=== PATIENT | female | born 1985 | race Caucasian/White ===

== ENCOUNTER 2016-06-09 11:09 | Emergency (ER) | payer OTHER ==
[~2016-06-09] VITALS: Ht 170.2 cm; Wt 131.8 kg
[~2016-06-09 11:09] MED LIST: ASPIR-LOW81 MG PO; CEFACLOR ER500 MG PO; DIABETA2.5 MG PO; GLYBURIDE2.5 MG PO; IBUPROFEN800 MG PO; KEFLEX250 MG PO; KEFLEX500 MG PO; LABETALOL HCL200 MG PO; LIDOCAINE20 MG/1 M5 PO; MACROBID100 MG PO; METADATE CD30 MG PO; MICRONOR0.35 MG PO; NAPROSYN500 MG PO; NIFEDIPINE ER30 MG PO; NITROFURANTOIN100 M3 PO; ORTHO TRI-CYCL1 EACH PO; PREDNISONE20 MG PO; PRENATAL TABLE1 EAC3 PO; PROCARDIA XL30 MG PO; ROBITUSSIN AC,T10 ML PO; TOPAMAX50 MG PO; TRI-PREVIFEM1 EACH PO; TYLENOL REGULA325 MG PO; ULTRAM50 MG PO; VISINE15 ML OP; ZOLOFT100 MG PO; ZOLOFT50 MG PO
[2016-06-09] MEDS ORDERED: ACID CONTROL150 MG PO (14:15)
[2016-06-09] MEDS ORDERED: METADATE CD30 MG PO (14:15)
[2016-06-09] MEDS ORDERED: SERTRALINE HCL50 MG PO (14:15)
[2016-06-09] MEDS ORDERED: VALIUM5 MG PO (14:25)
[2016-06-09] MEDS ORDERED: MOTRIN800 MG PO (14:25)
[2016-06-09] MEDS ORDERED: NORCO 7.5/321 TABLET PO (14:25)
[2016-06-09 15:02] VITALS: BP 141/85
== END 2016-06-09 15:03 | disposition home or self-care (01) ==
LOC: EME 11:09
DX: S30.0XXA Contusion of lower back and pelvis, initial encounter (principal); S39.012A Strain of muscle, fascia and tendon of lower back, initial encounter; W00.0XXA Fall on same level due to ice and snow, initial encounter; Y99.0 Civilian activity done for income or pay
CPT/HCPCS: 72100; 72220; 99281; 99284

== ENCOUNTER 2016-08-13 07:42 | Emergency (ER) | payer OTHER ==
[~2016-08-13] VITALS: Ht 167.6 cm; Wt 131.3 kg
[~2016-08-13 07:42] MED LIST changes: +ACID CONTROL150 MG PO; +MOTRIN800 MG PO; +NORCO 7.5/321 TABLET PO; +SERTRALINE HCL50 MG PO; +VALIUM5 MG PO
[2016-08-13] MEDS ORDERED: NAPROXEN500 MG PO (08:29)
[2016-08-13 08:48] VITALS: BP 165/99
== END 2016-08-13 08:52 | disposition home or self-care (01) ==
LOC: EME 07:42
PROC: 3E0234Z Introduction of Serum, Toxoid and Vaccine into Muscle, Percutaneous Approach (ICD-10-PCS; principal; 2016-08-13)
DX: S54.02XA Injury of ulnar nerve at forearm level, left arm, initial encounter (principal); S50.312A Abrasion of left elbow, initial encounter; S50.02XA Contusion of left elbow, initial encounter; W00.0XXA Fall on same level due to ice and snow, initial encounter; K21.9 Gastro-esophageal reflux disease without esophagitis; Z91.040 Latex allergy status
CPT/HCPCS: 73080; 99281; 99283; J1885

== ENCOUNTER 2016-12-03 00:31 | Emergency (ER) | payer OTHER ==
[~2016-12-03] VITALS: Ht 167.6 cm; Wt 130.5 kg
[~2016-12-03 00:31] MED LIST changes: +NAPROXEN500 MG PO
[2016-12-03 01:32] LABS: MCH 29.2 PG (29.0-34.0); MCHC 33.9 G/DL (30.0-36.0); MCV 86.3 FL (83-99); MEAN PLAT.VOLUME 11.9 uM^3 (9.5-12.4); PLATELET COUNT 188 K/uL (156-360); RBC DIS.WIDTH-CV 12.6 % (11.8-14.6); RBC DIS.WIDTH-SD 39.4 % (39-53); WHITE BLOOD COUNT 6.2 K/uL (4.1-10.2)
[2016-12-03 02:10] LABS: CHLORIDE 102 mEq/L (99-109); POTASSIUM 4.1 mEq/L (3.7-5.4); SODIUM 138 mEq/L (136-147)
[2016-12-03 02:13] LABS: GLUCOSE 319 mg/dL (70-99)
[2016-12-03 02:14] LABS: ANION GAP 12 MEQ/L (2-14)
[2016-12-03 02:15] LABS: TOTAL BILIRUBIN 0.9 mg/dL (0.0-1.0)
[2016-12-03 02:16] LABS: ALKALINE PHOSPHATASE 85 IU/L (3-129); GFR ESTIMATE (CALCULATED) > 59 mL/min/
[2016-12-03 02:17] LABS: UREA NITROGEN (BUN) 11 mg/dL (9-23)
[2016-12-03 02:25] LABS: QUANTITATIVE HCG < 4.0 MIU/ML
[2016-12-03 03:20] VITALS: BP 141/81
== END 2016-12-03 03:20 | disposition home or self-care (01) ==
LOC: EME 00:31 → EXP 00:31
DX: R07.9 Chest pain, unspecified (principal); R55 Syncope and collapse; R53.1 Weakness; R11.0 Nausea; R73.03 Prediabetes; R73.9 Hyperglycemia, unspecified; E86.0 Dehydration
CPT/HCPCS: 80053; 81003; 84702; 85027; 93005; 99281; 99285

== ENCOUNTER 2016-12-06 13:43 | Emergency (ER) | payer OTHER ==
[~2016-12-06] VITALS: Ht 170.2 cm; Wt 131.0 kg
[2016-12-06 14:43] LABS: HEMATOCRIT 42.5 % (36.0-46.0); MCH 29.2 PG (29.0-34.0); MCHC 34.1 G/DL (30.0-36.0); MCV 85.7 FL (83-99); PLATELET COUNT 159 K/uL (156-360); RBC DIS.WIDTH-CV 12.5 % (11.8-14.6); RBC DIS.WIDTH-SD 38.6 % (39-53); RED BLOOD COUNT 4.96 M/uL (3.80-5.20); WHITE BLOOD COUNT 4.9 K/uL (4.1-10.2)
[2016-12-06 14:43] LABS: CARBON DIOXIDE (BICARBONATE) 26.1 MEQ/L (20-31)
[2016-12-06 14:52] LABS: ADD MIUA? YES; BILIRUBIN NEGATIVE; BLOOD NEGATIVE; COLOR STRAW ((YELLOW)); GLUCOSE (STRIP) >=500; KETONES NEGATIVE; LEUKOCYTES SMALL; NITRITE NEGATIVE; PROTEIN (STRIP) NEGATIVE; SPECIFIC GRAVITY 1.026 (1.000-1.030); UROBILINOGEN 0.2 MG/DL (0.2-1.0)
[2016-12-06 14:53] LABS: CHLORIDE 101 mEq/L (99-109); SODIUM 134 mEq/L (136-147)
[2016-12-06 14:56] LABS: POINT-OF-CARE METER ID UU13113778; POINT-OF-CARE USER ID NUTJNM
[2016-12-06 14:57] LABS: ANION GAP 10 MEQ/L (2-14)
[2016-12-06 14:58] LABS: TOTAL BILIRUBIN 0.8 mg/dL (0.0-1.0)
[2016-12-06 14:59] LABS: ALKALINE PHOSPHATASE 85 IU/L (3-129); GFR ESTIMATE (CALCULATED) > 59 mL/min/
[2016-12-06 15:00] LABS: UREA NITROGEN (BUN) 10 mg/dL (9-23)
[2016-12-06 15:03] LABS: LIPASE 41 U/L (1.0-51.0)
[2016-12-06 15:03] LABS: BACTERIA RARE /HPF; EPITHELIAL CELLS RARE /HPF; MUCUS TRACE /LPF; RED BLOOD CELLS 0-5 /HPF (0-5); UCUL ADDED? NO; WHITE BLOOD CELLS 15-20 /HPF (0-5)
[2016-12-06 15:05] LABS: GLUCOSE 513 mg/dL (70-99)
[2016-12-06 15:08] LABS: QUANTITATIVE HCG < 4.0 MIU/ML
[2016-12-06 16:12] LABS: POINT-OF-CARE METER ID UU13113800
[2016-12-06] MEDS ORDERED: GLIMEPIRIDE2 MG PO (16:15)
[2016-12-06 17:14] VITALS: BP 144/86
== END 2016-12-06 17:16 | disposition home or self-care (01) ==
LOC: EME 13:43
PROVIDERS: Nurse Practitioner Family
DX: E11.65 Type 2 diabetes mellitus with hyperglycemia (principal); R11.2 Nausea with vomiting, unspecified; R10.84 Generalized abdominal pain; R42 Dizziness and giddiness; R35.0 Frequency of micturition; R07.9 Chest pain, unspecified; R06.02 Shortness of breath; Z91.19 Patient's noncompliance with other medical treatment and regimen; Z87.891 Personal history of nicotine dependence
CPT/HCPCS: 80053; 81003; 82803; 82948; 83690; 84702; 85027; 93005; 99281; 99284; J2405; J7030

== ENCOUNTER 2017-05-03 13:32 | Emergency (ER) | payer OTHER ==
[~2017-05-03] VITALS: Ht 167.6 cm; Wt 131.4 kg
[~2017-05-03 13:32] MED LIST changes: +FIORICET 50-301 EAC1 PO; +GLIMEPIRIDE2 MG PO; +ZOFRAN ODT8 MG PO
[2017-05-03 15:26] LABS: HEMATOCRIT 41.2 % (36.0-46.0); MCHC 33.7 G/DL (30.0-36.0); MCV 85.8 FL (83-99); MEAN PLAT.VOLUME 11.1 uM^3 (9.5-12.4); PLATELET COUNT 205 K/uL (156-360); RBC DIS.WIDTH-CV 12.6 % (11.8-14.6); RBC DIS.WIDTH-SD 39.6 % (39-53); WHITE BLOOD COUNT 8.3 K/uL (4.1-10.2)
[2017-05-03 15:35] LABS: CHLORIDE 102 mEq/L (99-109); POTASSIUM 4.3 mEq/L (3.7-5.4); SODIUM 139 mEq/L (136-147)
[2017-05-03 15:36] LABS: GLUCOSE 159 mg/dL (70-99)
[2017-05-03 15:38] LABS: ANION GAP 12 MEQ/L (2-14)
[2017-05-03 15:40] LABS: GFR ESTIMATE (CALCULATED) > 59 mL/min/
[2017-05-03 15:41] LABS: UREA NITROGEN (BUN) 13 mg/dL (9-23)
[2017-05-03 15:48] LABS: QUANTITATIVE HCG < 4.0 MIU/ML
[2017-05-03] MEDS ORDERED: PHENERGAN-CODE120 ML PO (16:47)
[2017-05-03] MEDS ORDERED: TESSALON PERLE100 MG PO (16:47)
[2017-05-03] MEDS ORDERED: VENTOLIN HFA18 GM IH (16:47)
[2017-05-03 18:03] VITALS: BP 137/99
== END 2017-05-03 18:10 | disposition home or self-care (01) ==
LOC: EME 13:32
PROVIDERS: Nurse Practitioner Family
DX: J06.9 Acute upper respiratory infection, unspecified (principal); I10 Essential (primary) hypertension; G47.30 Sleep apnea, unspecified; F90.9 Attention-deficit hyperactivity disorder, unspecified type; E11.9 Type 2 diabetes mellitus without complications; F31.9 Bipolar disorder, unspecified; Z87.891 Personal history of nicotine dependence
CPT/HCPCS: 71020; 80048; 81003; 84702; 85027; 87651 90; 94640; 99281; 99284

== ENCOUNTER 2017-07-01 20:44 | Emergency (ER) | payer OTHER ==
[~2017-07-01] VITALS: Ht 167.6 cm; Wt 127.2 kg
[~2017-07-01 20:44] MED LIST changes: +PHENERGAN-CODE120 ML PO; +TESSALON PERLE100 MG PO; +VENTOLIN HFA18 GM IH
[2017-07-01] MEDS ORDERED: ZOFRAN ODT4 MG PO (22:08)
[2017-07-01] MEDS ORDERED: VENTOLIN HFA18 GM IH (22:08)
[2017-07-01 22:40] VITALS: BP 158/109
[2017-07-02] MEDS ORDERED: MOTRIN800 MG PO (17:30)
== END 2017-07-01 22:41 | disposition home or self-care (01) ==
LOC: EME 20:44
PROVIDERS: Nurse Practitioner Family
DX: J10.1 Influenza due to other identified influenza virus with other respiratory manifestations (principal); R11.2 Nausea with vomiting, unspecified; R19.7 Diarrhea, unspecified; E11.9 Type 2 diabetes mellitus without complications; I10 Essential (primary) hypertension; F43.10 Post-traumatic stress disorder, unspecified; Z87.891 Personal history of nicotine dependence; F90.9 Attention-deficit hyperactivity disorder, unspecified type
CPT/HCPCS: 71046; 87502; 87651 90; 94640; 99281; 99284

== ENCOUNTER 2017-07-02 16:29 | Emergency (ER) | payer OTHER ==
[~2017-07-02] VITALS: Ht 167.6 cm; Wt 125.6 kg
[~2017-07-02 16:29] MED LIST changes: +ZOFRAN ODT4 MG PO
[2017-07-02] MEDS ORDERED: MOTRIN800 MG PO (17:30)
[2017-07-02 17:43] VITALS: BP 141/97
== END 2017-07-02 17:44 | disposition home or self-care (01) ==
LOC: EME 16:29
DX: J11.83 Influenza due to unidentified influenza virus with otitis media (principal); Z91.040 Latex allergy status
CPT/HCPCS: 99281; 99283; J1885

== ENCOUNTER 2017-09-07 09:34 | Inpatient (IN) | payer OTHER ==
[~2017-09-07] VITALS: Ht 167.6 cm; Wt 122.2 kg
[2017-09-07 10:06] LABS: HEMATOCRIT 43.8 % (36.0-46.0); MCH 29.6 PG (29.0-34.0); MCHC 34.2 G/DL (30.0-36.0); MCV 86.6 FL (83-99); PLATELET COUNT 218 K/uL (156-360); RBC DIS.WIDTH-CV 12.8 % (11.8-14.6); RBC DIS.WIDTH-SD 40.1 % (39-53); RED BLOOD COUNT 5.06 M/uL (3.80-5.20); WHITE BLOOD COUNT 6.4 K/uL (4.1-10.2)
[2017-09-07 10:19] LABS: CHLORIDE 103 mEq/L (99-109); POTASSIUM 4.5 mEq/L (3.7-5.4); SODIUM 137 mEq/L (136-147)
[2017-09-07 10:20] LABS: GLUCOSE 253 mg/dL (70-99)
[2017-09-07 10:23] LABS: SERUM ETHYL ALCOHOL < 10 mg/dL
[2017-09-07 10:24] LABS: CREATININE 0.9 mg/dL (0.6-1.3); GFR ESTIMATE (CALCULATED) > 59 mL/min/
[2017-09-07 10:25] LABS: UREA NITROGEN (BUN) 12 mg/dL (9-23)
[2017-09-07 11:24] LABS: AMPHETAMINE NEGATIVE (500 ng/mL); BARBITURATES NEGATIVE (200 ng/mL); BENZODIAZEPINES NEGATIVE (150 ng/mL); BUPRENORPHINE NEGATIVE (10 ng/mL); COCAINE NEGATIVE (150 ng/mL); METHADONE NEGATIVE (200 ng/mL); METHAMPHETAMINE NEGATIVE (500 ng/mL); OPIATES (MORPHINE) NEGATIVE (100 ng/mL); OXYCODONE NEGATIVE (100 ng/mL); PHENCYCLIDINE NEGATIVE (25 ng/mL); PROPOXYPHENE NEGATIVE (300 ng/mL); THC CANNABINOIDS NEGATIVE (50 ng/mL); TRICYCLIC ANTIDEPRESSANTS NEGATIVE (300 ng/mL)
[2017-09-07] MEDS ORDERED: BIOTIN 5000MCG PO (13:43)
[2017-09-07] MEDS ORDERED: BASAGLAR K100 UNIT/1 SC (13:44)
[2017-09-07 13:56] VITALS: BP 131/64
[2017-09-07 14:01] VITALS: BP 131/64
[2017-09-08 07:55] VITALS: BP 123/66
[2017-09-08 13:28] LABS: QUANTITATIVE HCG < 4.0 MIU/ML
[2017-09-08 15:45] VITALS: BP 122/68
[2017-09-09 08:04] VITALS: BP 105/65
[2017-09-09 14:24] LABS: HEMOGLOBIN A1c (GLYCOHEMOGLOB) 8.6 % (Below 5.7)
[2017-09-09 15:43] VITALS: BP 110/61
[2017-09-10 09:36] VITALS: BP 128/72
[2017-09-10 15:30] VITALS: BP 118/60
[2017-09-11 07:52] VITALS: BP 117/60
[2017-09-11 15:23] VITALS: BP 132/80
[2017-09-12 07:41] VITALS: BP 130/60
[2017-09-12] MEDS ORDERED: LEVEMIR100 UNIT/2 SC ×2 (09:45)
[2017-09-12] MEDS ORDERED: LITHIUM CARBON300 MG PO (09:45)
[2017-09-12] MEDS ORDERED: DESYREL100 MG PO (09:45)
[2017-09-12] MEDS ORDERED: ESCITALOPRAM OX10 MG PO (09:45)
== END 2017-09-12 11:47 | disposition home or self-care (01) | DRG 885 ==
LOC: EME 09:34 → EDOF 12:37 → 1WEST 12:37 → ENRESERV 14:34 → 1WEST 14:34
PROVIDERS: Psychiatry & Neurology Psychiatry
DX: F31.9 Bipolar disorder, unspecified (principal); R45.851 Suicidal ideations; E11.65 Type 2 diabetes mellitus with hyperglycemia; F90.9 Attention-deficit hyperactivity disorder, unspecified type; E66.9 Obesity, unspecified; F50.81 Binge eating disorder; F10.11 Alcohol abuse, in remission; F60.9 Personality disorder, unspecified; Z68.41 Body mass index [BMI] 40.0-44.9, adult; Z79.4 Long term (current) use of insulin; Z81.8 Family history of other mental and behavioral disorders
CPT/HCPCS: 80048; 82948; 83036; 84702; 85027; 90839; 97150 GO; 97165 GO; 99281; 99284; G0480; J1815